=== PATIENT | male | born 2000 | race Caucasian/White ===

== ENCOUNTER 2024-04-27 01:37 | Emergency (ER) | payer SELFPAY ==
[~2024-04-27] VITALS: Ht 162.6 cm; Wt 68.0 kg
[2024-04-27 01:41] VITALS: O2SAT 100
[2024-04-27] MEDS: SODIUM CHLORIDE 0.9% 1,000 ML IV ONE (02:07)
[2024-04-27 02:20] VITALS: BP 110/65; PULSE 85; RESP 16; TEMP 37.66968; O2SAT 100
[2024-04-27 02:24] LABS: BASOPHILS % 0.5 % (0.0-2.0); EOSINOPHILS % 0.7 % (0.0-5.0); HEMATOCRIT. 45.7 % (42.0-52.0); LYMPHOCYTES % 33.3 % (20.0-50.0); MEAN CORPUSCULAR HEMOGLOBIN 31.3 pg (28.0-32.0); MEAN CORPUSCULAR HGB CONC 32.8 g/dL (31.0-37.0); MEAN CORPUSCULAR VOLUME 95.3 fL (80.0-94.0); MEAN PLATELET VOLUME 8.4 fl (7.4-10.4); MONOCYTES % 4.8 % (2.0-8.0); NEUTROPHILS % 60.7 % (40.0-76.0); PLATELET 257 x1000/uL (130-400); RED CELL DISTRIBUTION WIDTH 13.6 % (11.6-14.6); WHITE BLOOD COUNT 4.1 x1000/uL (4.5-11.0)
[2024-04-27 02:28] LABS: CARBON DIOXIDE 16 mEq/L (21-32); CHLORIDE 119 mEq/L (98-107); SODIUM 147 mEq/L (136-145)
[2024-04-27 02:29] LABS: CALCIUM 6.4 mg/dL (8.7-10.4)
[2024-04-27 02:34] LABS: CREATININE 0.4 mg/dL (0.6-1.3); ETHANOL BLOOD 210 mg/dL (<10); GLUCOSE 75 mg/dL (70-105)
[2024-04-27 02:36] LABS: ACETAMINOPHEN < 2 ug/mL (10-30)
[2024-04-27 02:40] LABS: UREA NITROGEN BLOOD < 5 mg/dL (9-23)
[2024-04-27 02:41] LABS: POTASSIUM 2.7 mEq/L (3.5-5.1)
[2024-04-27] MEDS ORDERED: POTASSIUM CHLORIDE 20MEQ/PACKET PO NR (03:30)
== END 2024-04-27 05:06 | disposition left against medical advice (07) ==
LOC: ER 01:37
DX: F10.129 Alcohol abuse with intoxication, unspecified (principal); E87.6 Hypokalemia; Y90.7 Blood alcohol level of 200-239 mg/100 ml
CPT/HCPCS: 80048; 80307; 80329; 80320; 85025; 36415; 99283; J7030; G0480